=== PATIENT | female | born 1990 | race Caucasian/White ===

== ENCOUNTER 2024-05-01 15:18 | Emergency (ER) | payer SELFPAY ==
[2024-05-01] MEDS ORDERED: Cyclobenzaprine 10 MG TAB ONE (16:33)
[2024-05-01] MEDS ORDERED: Ketorolac Tromethamine 30 MG (1 mL) VIAL ONE (16:33)
[2024-05-01 17:14] LABS: Bilirubin Neg (Negative); Blood, Urine 10 (Negative); Clarity Clear (Clear); Glucose, Urine (Dipstick) Normal (Negative); Ketone, Urine Negative (Negative); Leukocyte Negative (Negative); Nitrite Negative (Negative); Protein, Urine (Dipstick) Negative (Neg-Trace); Urobilinogen Normal mg/dL (Less than 2)
[2024-05-01 17:16] LABS: Pregnancy Test - Urine (BHCG) Negative (Negative)
[2024-05-01 17:17] LABS: Pregu Control Background? CLEAR/WHITE (CLR/WHITE); Pregu Control Bar Appear? YES (CONTROL BAR)
[2024-05-01 17:40] LABS: Bacteria/HPF None Seen HPF (None Seen); CAUTI Indications for Culture Pelvic or flank pain; RBC/HPF None Seen HPF (0-3); Squamous Epithelial 0-3 HPF (0-3); WBC/HPF 0-3 HPF (0-3)
[2024-05-01 17:41] LABS: Urine Culture Reflex No No
== END 2024-05-01 17:45 | disposition home or self-care (01) ==
LOC: CSHERS 15:18
DX: M54.50 Low back pain, unspecified (principal); J45.909 Unspecified asthma, uncomplicated; R73.03 Prediabetes
CPT/HCPCS: 81001; 81025; 96372; 99283; J1885